=== PATIENT | male | born 1995 | race Hispanic/Latino ===

== ENCOUNTER 2021-08-09 10:11 | Emergency (ER) | payer OTHER ==
[~2021-08-09] VITALS: Ht 177.8 cm; Wt 114.5 kg
[2021-08-09] MEDS ORDERED: ACETAMINOPHEN 500 MG TAB PO ONE (12:05)
[2021-08-09] MEDS ORDERED: CEPH500T PO (12:11)
[2021-08-09 13:35] VITALS: BP 125/70
== END 2021-08-09 13:36 | disposition home or self-care (01) ==
LOC: M ED 10:11
DX: L03.114 Cellulitis of left upper limb (principal); Z87.891 Personal history of nicotine dependence

== ENCOUNTER → 2021-12-24 | Outpatient (CLI) | payer OTHER ==
[~2021-12-24] MED LIST: CEPH500T PO; PROHANCE 279.3MG/ML 5ML VIAL As Ordered ONE
== END ==
LOC: M RAD 12:22
PROVIDERS: ATTEND Internal Medicine Endocrinology, Diabetes & Metabolism
DX: E29.1 Testicular hypofunction (principal)
CPT/HCPCS: 70553; A9576

== ENCOUNTER 2022-01-26 13:14 | Emergency (ER) | payer OTHER ==
[~2022-01-26] VITALS: Ht 175.3 cm; Wt 125.2 kg
[~2022-01-26 13:14] MED LIST changes: -PROHANCE 279.3MG/ML 5ML VIAL As Ordered ONE
[2022-01-26] MEDS ORDERED: KETOROLAC 30 MG/ML 1ML VIAL IV ONE (14:20)
[2022-01-26] MEDS ORDERED: ONDANSETRON 4MG/2ML VIAL IV ONE (14:20)
[2022-01-26] MEDS ORDERED: NS 1,000 ML IV ONE (14:20)
[2022-01-26] MEDS ORDERED: ACETAMINOPHEN 325 MG TAB PO ONE (15:10)
[2022-01-26 15:11] LABS: BASO % 0.3 % (0.0-1.0); EOS # 0.1 10^3/uL (0.0-0.5); EOS % 0.6 % (0.0-3.0); HEMATOCRIT 45.6 % (42.0-52.0); HEMOGLOBIN 15.4 g/dl (13.5-17.5); LYMPH # 2.8 10^3/uL (1.5-5.0); LYMPH % 21.9 % (24.0-44.0); MEAN CORPUSCULAR HEMOGLOBIN 28.9 pg (27.0-33.0); MEAN CORPUSCULAR HGB CONC 33.8 g/dl (32.0-36.5); MEAN CORPUSCULAR VOLUME 85.7 fl (80.0-96.0); MONO # 1.4 10^3/uL (0.0-0.8); MONO % 10.6 % (2.0-8.0); NEUTROPHILS # 8.6 10^3/uL (1.5-8.5); NEUTROPHILS % 66.2 % (36.0-66.0); PLATELET COUNT, AUTOMATED 299 10^3/uL (150-450); RED BLOOD COUNT 5.32 10^6/uL (4.30-6.10); WHITE BLOOD COUNT 12.9 10^3/uL (4.0-10.0)
[2022-01-26 15:22] LABS: INR 1.08; PROTHROMBIN TIME 14.4 SECONDS (12.7-14.5)
[2022-01-26 15:24] LABS: D-DIMER QUANT 406.13 ng/ml (<500)
[2022-01-26 15:33] LABS: ALBUMIN 3.4 GM/DL (3.2-5.2); ALT/SGPT 24 U/L (12-78); BILIRUBIN,DIRECT < 0.1 MG/DL (0.0-0.2); BILIRUBIN,TOTAL 0.4 MG/DL (0.2-1.0); LIPASE 109 U/L (73-393); TOTAL PROTEIN 7.5 GM/DL (6.4-8.2)
[2022-01-26] MEDS ORDERED: cefTRIAXone SOD 1 GM in D5W MINI-BAG PLUS 50 ML IV ONE (16:10)
[2022-01-26] MEDS ORDERED: AZITHROMYCIN INJ 500 MG, VIAL MATE ADAPTER 1 EACH in NS 250 ML IV ONE (16:10)
[2022-01-26] MEDS ORDERED: AMOX875T2 PO (18:55)
[2022-01-26] MEDS ORDERED: ONDA4TAB6 PO (18:58)
[2022-01-26 19:34] VITALS: BP 132/76
== END 2022-01-26 19:34 | disposition home or self-care (01) ==
LOC: M ED 13:14
DX: J18.1 Lobar pneumonia, unspecified organism (principal); B97.81 Human metapneumovirus as the cause of diseases classified elsewhere
CPT/HCPCS: 71046; 80047; 80076; 83605; 83690; 85025; 85379; 85610; 87040; 87400; 87426; 87486; 87581; 87633; 87798; 93005; 96361; 96365; 96366; 96368; 96375; 99284; J0456; J0696; J1885; J2405

== ENCOUNTER 2022-02-14 17:54 | Emergency (ER) | payer OTHER ==
[~2022-02-14] VITALS: Ht 175.3 cm; Wt 121.3 kg
[~2022-02-14 17:54] MED LIST changes: +AMOX875T2 PO; +ONDA4TAB6 PO
[2022-02-14] MEDS ORDERED: KETOROLAC 60MG 2ML VIAL IM ONE (21:25)
[2022-02-14 21:40] VITALS: BP 127/80
== END 2022-02-14 21:42 | disposition home or self-care (01) ==
LOC: M ED 17:54
DX: M94.0 Chondrocostal junction syndrome [Tietze] (principal)
CPT/HCPCS: 71046; 87486; 87581; 87633; 87798; 96372; 99283; J1885